=== PATIENT | male | born 1950 | race Caucasian/White ===

== ENCOUNTER 2022-06-12 06:18 | Day surgery (SDC) | payer OTHER ==
[~2022-06-12] VITALS: Ht 160 cm; Wt 58.1 kg
[2022-06-12] MEDS ORDERED: diphenhydrAMINE 50 MG/ML VIAL ONE (07:24)
[2022-06-12] MEDS ORDERED: fentaNYL citrate 0.05 MG/ML VIAL ONE (07:25)
[2022-06-12] MEDS ORDERED: MIDAZOLAM 5 MG/5 ML VIAL ONE (07:25)
[2022-06-12] MEDS ORDERED: fentaNYL citrate 0.05 MG/ML VIAL IVP ONE (08:10)
[2022-06-12] MEDS ORDERED: MIDAZOLAM 5 MG/5 ML VIAL IV ONE (08:10)
== END 2022-06-12 08:55 | disposition home or self-care (01) ==
LOC: MOR 06:18 → MMU 06:18 → MOR 08:55
PROVIDERS: ATTEND Internal Medicine Gastroenterology
DX: R63.4 Abnormal weight loss (principal); D12.2 Benign neoplasm of ascending colon; D12.3 Benign neoplasm of transverse colon; K29.70 Gastritis, unspecified, without bleeding; K31.89 Other diseases of stomach and duodenum; E11.9 Type 2 diabetes mellitus without complications; E78.5 Hyperlipidemia, unspecified; Z79.899 Other long term (current) drug therapy; Z20.822 Contact with and (suspected) exposure to COVID-19
CPT/HCPCS: 43239; 45385; 87426; 88305; 88312; 88313; 88342; J2250; J3010; J1200